=== PATIENT | female | born 1990 | race Caucasian/White ===

== ENCOUNTER 2017-05-20 10:49 | Emergency (ER) | payer BC ==
[2017-05-20 11:20] VITALS: BP 126/96
[2017-05-20] MEDS ORDERED: Acetaminophen/oxyCODONE 325-5 MG Tab PO ONE (12:19)
[2017-05-20] MEDS ORDERED: Cephalexin 500 MG Cap PO ONE (12:22)
--- NOTE | 2017-05-20 12:26 | EDM.PDOC ---
ED HPI GENERAL MEDICAL PROBLEM - General Chief Complaint: ASPHALT ROLLER OPERATOR Problem Stated Complaint: BREAST PAIN/BODY ACHES Time Seen by Provider: 05/20/17 11:53 Source of Information: Reports: Patient History Limitations: Reports: No Limitations - History of Present Illness INITIAL COMMENTS - FREE TEXT/NARRATIVE: Patient is a 26 year old female who presents to the E.D. complaining of tenderness, redness, and generalized body aches. States she has mastitis. She has a history of mastitis in the past with similar symptoms. She continues attempted to breast-feed but once a day particularly in the evening. No drainage from the nipple. Initially thought it was plugged milk duct but due to the development of redness states it's most likely mastitis. Has some generalized body aches no fever, nausea vomiting, shortness of breath, abdominal pain, dysuria, or any additional complaints. She does have some low back discomfort with onset of symptoms. Denies being . 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: , Spontaneous Endocrine/Metabolic History: Reports: Hypothyroidism - Past Surgical History HEENT Surgical History: Reports: BR[place] Female Surgical History: Reports: D&C Musculoskeletal Surgical History: Reports: ORIF Social & Family History - Tobacco Use Smoking Status *Q: Never Smoker Years of Tobacco use: 5 Packs/Tins Daily: 1 Used Tobacco, but Quit: Yes Month Tobacco Last Used: 03/2015 Second Hand Smoke Exposure: No - Caffeine Use Caffeine Use: Reports: None - Alcohol Use Days Per Week of Alcohol Use: 0 - Recreational Drug Use Recreational Drug Use: No ED ROS GENERAL - Review of Systems Review Of Systems: ROS reveals no pertinent complaints other than HPI. ED EXAM, SKIN/RASH Exam: See Below Exam Limited By: No Limitations General Appearance: Alert, WD/WN, No Apparent Distress Ears: Hearing Grossly Normal Nose: Normal Inspection Throat/Mouth: Normal Voice, No Airway Compromise Neck: Normal Inspection, Supple Respiratory/Chest: No Respiratory Distress, Lungs Clear, Normal Breath Sounds, No Accessory Muscle Use Cardiovascular: Normal Peripheral Pulses, Regular Rate, Rhythm Peripheral Pulses: 2+: Radial (R) GI/Abdominal: Normal Bowel Sounds, Soft, Non-Tender, No Organomegaly, No Distention Back Exam: Normal Inspection, Full Range of Motion. No: CVA Tenderness (L), CVA Tenderness (R) Extremities: Normal Inspection, Normal Range of Motion, Non-Tender, No Pedal Edema, Normal Capillary Refill Neurological: Alert, Oriented, Normal Cognition, No Motor/Sensory Deficits Psychiatric: Normal Affect, Normal Mood Skin: Warm, Dry, Intact, Normal Color Location, Skin: Chest (Faint redness noted to the right breast lateral aspect with increased warmth and tenderness noted. No open wounds present. No drainage from the nipple . ) Associated features: Warmth, Tenderness, Inflammation. No: Induration, Scaling , Lymphangitis, Crusting, Weeping, Rough Course - Vital Signs Last Recorded V/S: Last Vital Signs Temp 99.2 F 05/20/17 11:17 Pulse 92 05/20/17 11:17 Resp 18 05/20/17 11:17 BP 126/96 H 05/20/17 11:17 Pulse Ox 98 05/20/17 11:17 - Orders/Labs/Meds Labs: Laboratory Tests 05/20/17 05/20/17 Range/Units 12:45 12:45 Urine Color Yellow (Yellow) Urine Appearance Clear (Clear) Urine pH 6.5 (5.0-8.0) Ur Specific Burkett 1.025 (1.005-1.030) Urine Protein Trace H (Negative) Urine Glucose (UA) Negative (Negative) Urine Ketones Negative (Negative) Urine Occult Blood Negative (Negative) Urine Nitrite Negative (Negative) Urine Bilirubin Negative (Negative) Urine Urobilinogen 0.2 (0.2-1.0) Ur Leukocyte Esterase Negative (Negative) Urine RBC Not seen (0-5) /hpf Urine WBC 0-5 (0-5) /hpf Ur Epithelial Cells 0-5 (0-5) /hpf Urine Bacteria Not seen (FEW) /hpf Urine Mucus Many H (FEW) /hpf Urine HCG, Qual Negative (NEGATIVE) Meds: Medications Discontinued Medications Generic Name Dose Route Start Last Admin Trade Name Ana PRN Reason Stop Dose Admin Cephalexin 500 mg 05/20/17 12:22 05/20/17 12:39 Keflex PO 05/20/17 12:23 500 mg ONETIME ONE Administration Ceftriaxone Sodium 1 gm/ 0 gm 05/20/17 12:30 05/20/17 12:39 Lidocaine HCl 2.1 ml IM 1 inj Q24H [id number] Administration Oxycodone/Acetaminophen 1 tab 05/20/17 12:19 05/20/17 12:39 Percocet 325-5 Mg PO 05/20/17 12:20 1 tab ONETIME ONE Administration - Re-Assessments/Exams Free Text/Narrative Re-Assessment/Exam: Patient has history of mastitis. Current symptoms are similar to previous episodes. On examination patient does have mastitis located to the right breast lateral aspect. No drainage from the nipple present. No open sores present. No history of MRSA. Ordered Rocephin 1 g IM and Keflex 500 mg by mouth. In addition for pain one tablet Percocet by mouth. HCG and UA will be obtained due to low back discomfort and generalized body aches. Patient does not want to have any blood work obtained. 05/20/17 13:26 UA negative for infection. HCG negative. Discharge patient home with instructions for mastitis and prescription for keflex. Departure - Departure Time of Disposition: 13:26 Disposition: Home, Self-Care 01 Condition: Good Clinical Impression: Mastitis in female - Discharge Information Prescriptions: Acetaminophen with Codeine [Tylenol with Codeine #3 Tablet] 1 each PO QID PRN # 16 tablet PRN Reason: Pain (Severe 7-10) Cephalexin [Keflex] 500 mg PO QID #40 capsule Instructions: Mastitis, [id number] Referrals: Tess Farmer DO [Primary Care Provider] - Forms: ED Department Discharge, ED Return to Work/School Form Additional Instructions: Take the full course of antibiotic as prescribed. For pain take ibuprofen and Tylenol in alternating fashion. For severe pain take Tylenol 3. Do not take Tylenol and Tylenol No. 3 together. Massage your breasts during feedings. Use a breast pump to empty your breasts after feedings. Call and make an appointment to see your PCP on Tuesday or Tuesday for reevaluation. Return to the ED for any new or worsening symptoms.
[2017-05-20] MEDS ORDERED: cefTRIAXone 1 GM, Lidocaine 1% 2.1 ML IM SCH ×2 (12:30)
== END 2017-05-20 13:40 | disposition home or self-care (01) ==
LOC: JD.ED 10:49 → SUPCPDRO 10:49 → JD.ED 13:40
DX: N61.0 Mastitis without abscess (principal); Z88.5 Allergy status to narcotic agent
CPT/HCPCS: 81001; 81025; 96372; 99283; A9270; J0696

== ENCOUNTER 2019-07-20 17:06 | Emergency (ER) | payer BC ==
[2019-07-20 17:26] VITALS: BP 135/84; PULSE 88
--- NOTE | 2019-07-20 18:18 | EDM.PDOC ---
ED HPI GENERAL MEDICAL PROBLEM - General Chief Complaint: Cardiovascular Problem Stated Complaint: CHEST PAIN/ELEVATED HEART RATE Time Seen by Provider: 07/20/19 17:39 Source of Information: Reports: Patient, RN Notes Reviewed - History of Present Illness INITIAL COMMENTS - FREE TEXT/NARRATIVE: 28-year-old female comes in with palpitations that have been occurring on and off both the past week or so. She has an apple watch. She has been getting occasional spike readings in the 120 to 1:30 range. These been primarily occurring at rest. That she does have a mild tightness of her upper anterior chest that comes and goes. 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 Off thyroid medication for a while and than was started back on medication about 4 weeks ago Chest Pain Score (Numeric/FACES): 3 - Related Data Allergies Allergy/AdvReac Type Severity Reaction Status Date / Time hydromorphone Allergy Itching Verified 07/20/19 17:26 Home Meds: Home Meds Levothyroxine [Synthroid] 137 mcg PO ACBREAKFAST 05/20/17 [History] Amitriptyline [Elavil] 25 mg PO DAILY 07/20/19 [History] Cyclobenzaprine [Flexeril] 10 mg PO TID PRN 07/20/19 [History] Gabapentin [Neurontin] 300 mg PO BID 07/20/19 [History] Past Medical History - Past Health History Medical/Surgical History: Denies Medical/Surgical History 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: , Spontaneous Neurological History: Reports: Other (See Below) Other Neuro History: fibromyalgia Endocrine/Metabolic History: Reports: Hypothyroidism Other Endocrine/Metabolic History: hasimotos disease - Past Surgical History HEENT Surgical History: Reports: LASIK Female Surgical History: Reports: D&C Musculoskeletal Surgical History: Reports: ORIF Social & Family History - Family History Family Medical History: Noncontributory - Tobacco Use Smoking Status *Q: Never Smoker Second Hand Smoke Exposure: No - Caffeine Use Caffeine Use: Reports: Coffee - Recreational Drug Use Recreational Drug Use: No ED ROS GENERAL - Review of Systems Review Of Systems: See Below Constitutional: Denies: Fever, Chills, Diaphoresis HEENT: Denies: Throat Pain Respiratory: Denies: Shortness of Breath Cardiovascular: Reports: Chest Pain (occasional mild tightness), Palpitations GI/Abdominal: Denies: Abdominal Pain, Nausea, Vomiting Musculoskeletal: Denies: Back Pain Skin: Reports: No Symptoms Neurological: Reports: No Symptoms ED EXAM, GENERAL - Physical Exam Exam: See Below General Appearance: Alert, No Apparent Distress Throat/Mouth: Normal Inspection, Normal Oropharynx Head: Atraumatic. No: Facial Swelling Neck: Supple Respiratory/Chest: No Respiratory Distress, Lungs Clear, Normal Breath Sounds Cardiovascular: Regular Rate, Rhythm GI/Abdominal: Soft, Non-Tender Extremities: Normal Inspection, Normal Range of Motion Neurological: Alert, Oriented, No Motor/Sensory Deficits Psychiatric: Normal Affect, Normal Mood Skin Exam: Dry, Normal Color EKG INTERPRETATION EKG Date: 07/20/19 Rhythm: NSR Mustang: Normal P-Wave: Present QRS: Normal ST-T: Normal QT: Normal Course - Vital Signs Last Recorded V/S: Last Vital Signs Temp 99.0 F 07/20/19 17:18 Pulse 88 07/20/19 17:18 Resp 16 07/20/19 17:18 BP 135/84 07/20/19 17:18 Pulse Ox 99 07/20/19 17:18 - Orders/Labs/Meds Orders: Active Orders 24 hr Category Date Time Status EKG 12 Lead [EKG Documentation Completion] [RC] STAT Care 07/20/19 18:15 Active Holter Monitor 48 Hours [RC] .PRN Care 07/20/19 19:18 Active Labs: Laboratory Tests 07/20/19 07/20/19 Range/Units 17:52 18:25 WBC 3.96 L (3.98-10.04) K/mm3 RBC 4.23 (3.98-5.22) M/mm3 Hgb 13.4 (11.2-15.7) gm/dl Hct 39.3 (34.1-44.9) % MCV 92.9 D (79.4-94.8) fl MCH 31.7 (25.6-32.2) pg MCHC 34.1 (32.2-35.5) g/dl RDW Std Deviation 40.2 (36.4-46.3) fL Plt Count 208 (182-369) K/mm3 MPV 8.9 L (9.4-12.3) fl Neut % (Auto) 40.3 (34.0-71.1) % Lymph % (Auto) 42.9 (19.3-51.7) % Faulk % (Auto) 15.7 H (4.7-12.5) % Eos % (Auto) 0.8 (0.7-5.8) Baso % (Auto) 0.0 L (0.1-1.2) % Neut # (Auto) 1.60 (1.56-6.13) K/mm3 Lymph # (Auto) 1.70 (1.18-3.74) K/mm3 Faulk # (Auto) 0.62 H (0.24-0.36) K/mm3 Eos # (Auto) 0.03 L (0.04-0.36) K/mm3 Baso # (Auto) 0.00 L (0.01-0.08) K/mm3 Manual Slide Review Abnormal smear Sodium 142 (136-145) mEq/L Potassium 3.8 (3.5-5.1) mEq/L Chloride 106 (98-107) mEq/L Carbon Dioxide 26 (21-32) mEq/L Anion Gap 13.8 (5-15) BUN 13 (7-18) mg/dL Creatinine 0.8 (0.55-1.02) mg/dL Est Cr Clr Drug Dosing 102.72 mL/min Estimated GFR (MDRD) > 60 (>60) mL/min BUN/Creatinine Ratio 16.3 (14-18) Glucose 88 (74-106) mg/dL Calcium 8.8 (8.5-10.1) mg/dL Total Bilirubin 0.4 (0.2-1.0) mg/dL AST 13 L (15-37) U/L ALT 27 (14-59) U/L Alkaline Phosphatase 53 (46-116) U/L Total Protein 7.4 (6.4-8.2) g/dl Albumin 3.9 (3.4-5.0) g/dl Globulin 3.5 gm/dL Albumin/Globulin Ratio 1.1 (1-2) TSH 3rd Generation 0.048 L (0.358-3.74) uIU/mL - Re-Assessments/Exams Free Text/Narrative Re-Assessment/Exam: 07/21/19 08:17 TSH did come back low at .048, has been in sinus rythm, rate in the 80's while here in the ED, discharge instr. as documented. Departure - Departure Time of Disposition: 19:22 Disposition: Home, Self-Care 01 Condition: Fair Clinical Impression: Palpitations Instructions: Palpitations, [id number] Referrals: Tasha Carpio MD [Primary Care Provider] - Forms: ED Department Discharge Additional Instructions: Do not take your synthroid tomorrow AM and than take every other morning until you hear from your Project Inspector. Your TSH today was .048. Drink plenty of water to maintain hydration, 48 hour Holter monitor. Follow-up with your regular medical provider in about 7 days for results. Return to ED as needed if symptoms worsening in any way Sepsis Event Note - Evaluation Sepsis Screening Result: No Definite Risk - Focused Exam Date Exam was Performed: 07/21/19 Time Exam was Performed: 08:16 - My Orders Last 24 Hours: My Active Orders 07/20/19 18:15 EKG 12 Lead [EKG Documentation Completion] [RC] STAT 07/20/19 19:18 Holter Monitor 48 Hours [RC] .PRN - Assessment/Plan Last 24 Hours: My Active Orders 07/20/19 18:15 EKG 12 Lead [EKG Documentation Completion] [RC] STAT 07/20/19 19:18 Holter Monitor 48 Hours [RC] .PRN
== END 2019-07-20 20:18 | disposition home or self-care (01) ==
LOC: JD.ED 17:06
DX: R00.2 Palpitations (principal); E03.9 Hypothyroidism, unspecified; Z88.6 Allergy status to analgesic agent; Z79.899 Other long term (current) drug therapy
CPT/HCPCS: 36415; 80053; 84443; 85025; 93005; 93225; 93226; 99285-25

== ENCOUNTER 2020-06-17 19:21 | Emergency (ER) | payer BC ==
[2020-06-17] MEDS ORDERED: diphenhydrAMINE 50 MG Cap PO ONE ×2 (20:12→20:15)
[2020-06-17] MEDS ORDERED: Ketorolac 30 MG/ML SDV IM ONE (20:12)
[2020-06-17] MEDS ORDERED: Acetaminophen 325 MG Tab PO ONE (20:12)
[2020-06-17] MEDS ORDERED: Metoclopramide 5 MG Tab PO ONE (20:12)
[2020-06-17] MEDS ORDERED: Ondansetron 4 MG Tab.DIS PO ONE (20:15)
[2020-06-17] MEDS ORDERED: diphenhydrAMINE 25 MG Cap ONE (20:25)
[2020-06-17] MEDS ORDERED: diphenhydrAMINE 25 MG Cap PO ONE (20:32)
--- NOTE | 2020-06-17 20:33 | EDM.PDOC ---
ED HPI GENERAL MEDICAL PROBLEM - General Chief Complaint: Headache Stated Complaint: POSS STROKE Time Seen by Provider: 06/17/20 19:44 Source of Information: Reports: Patient, RN Notes Reviewed - History of Present Illness INITIAL COMMENTS - FREE TEXT/NARRATIVE: 29 yr old female with onset of Calixto a couple of hrs ago. Started feeling nauseated and than developed perioral tingling around her mouth bilat, and also R hand. Calixto is bilat. Tingling now better. No cough, fever or chills. Headache Pain Score (Numeric/FACES): 10 - Related Data Allergies Allergy/AdvReac Type Severity Reaction Status Date / Time hydromorphone Allergy Itching Verified 06/17/20 19:33 Home Meds: Home Meds Levothyroxine [Synthroid] 125 mcg PO ACBREAKFAST 05/20/17 [History] Cyclobenzaprine [Flexeril] 10 mg PO TID PRN 07/20/19 [History] Gabapentin [Neurontin] 300 mg PO DAILY 07/20/19 [History] Diclofenac Sodium 50 mg PO DAILY PRN 06/17/20 [History] Gabapentin [Neurontin] 600 mg PO BEDTIME 06/17/20 [History] Metoprolol Succinate 25 mg PO DAILY 06/17/20 [History] Sertraline [Zoloft] 100 mg PO DAILY 06/17/20 [History] traZODone HCl [Trazodone HCl] 50 mg PO BEDTIME 06/17/20 [History] Past Medical History - Past Health History Medical/Surgical History: Denies Medical/Surgical History Cardiovascular History: Reports: Hypertension, Other (See Below) Other Cardiovascular History: tachycardic 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: , Spontaneous Musculoskeletal History: Reports: Fibromyalgia Neurological History: Reports: Other (See Below) Other Neuro History: fibromyalgia Psychiatric History: Reports: Anxiety, Depression Endocrine/Metabolic History: Reports: Hypothyroidism Other Endocrine/Metabolic History: hasimotos disease - Infectious Disease History Infectious Disease History: Reports: Chicken Pox - Past Surgical History HEENT Surgical History: Reports: LASIK Female Surgical History: Reports: D&C Musculoskeletal Surgical History: Reports: ORIF Social & Family History - Family History Family Medical History: No Pertinent Family History - Tobacco Use Tobacco Use Status *Q: Current Every Day Tobacco User Years of Tobacco use: 1 Packs/Tins Daily: 1 - Caffeine Use Caffeine Use: Reports: Coffee, Soda - Recreational Drug Use Recreational Drug Use: No ED ROS GENERAL - Review of Systems Review Of Systems: See Below Constitutional: Denies: Fever, Chills HEENT: Denies: Sinus Problem, Throat Pain Respiratory: Denies: Shortness of Breath, Cough Cardiovascular: Denies: Chest Pain GI/Abdominal: Reports: Nausea. Denies: Abdominal Pain, Diarrhea, Vomiting Musculoskeletal: Denies: Neck Pain, Back Pain Skin: Reports: No Symptoms Neurological: Reports: Dizziness, Headache, Numbness. Denies: Trouble Speaking, Difficulty Walking, Weakness - Physical Exam Exam: See Below General Appearance: Alert, No Apparent Distress Eye Exam: Bilateral Eye: PERRL Head Exam: Atraumatic. No: Facial Swelling Neck: Supple Respiratory/Chest: No Respiratory Distress, Lungs Clear, Normal Breath Sounds Cardiovascular: Regular Rate, Rhythm GI/Abdominal: Soft, Non-Tender Neuro Exam (Abbreviated): Alert, Oriented, No Motor/Sensory Deficits, Other (no upper extrem drift, finger to nose nl) Extremities: Normal Inspection, Normal Range of Motion Skin Exam: Warm, Dry, Normal Color, No Rash Course - Vital Signs Last Recorded V/S: Last Vital Signs Temp 98.1 F 06/17/20 19:29 Pulse 66 06/17/20 20:46 Resp 20 06/17/20 20:46 BP 110/73 06/17/20 20:46 Pulse Ox 97 06/17/20 20:46 - Orders/Labs/Meds Meds: Medications Discontinued Medications Generic Name Dose Route Start Last Admin Trade Name Ana PRN Reason Stop Dose Admin Acetaminophen 975 mg 06/17/20 20:12 06/17/20 20:21 Tylenol PO 06/17/20 20:13 Not Given NOW ONE Diphenhydramine HCl 25 mg 06/17/20 20:12 06/17/20 20:34 Benadryl PO 06/17/20 20:13 Not Given ONETIME ONE Diphenhydramine HCl 25 mg 06/17/20 20:15 06/17/20 20:33 Benadryl PO 06/17/20 20:16 Not Given ONETIME ONE Diphenhydramine HCl Confirm 06/17/20 20:25 06/17/20 20:33 Benadryl Administered 06/17/20 20:26 Not Given Dose 25 mg .ROUTE .STK-MED ONE Diphenhydramine HCl 25 mg 06/17/20 20:32 06/17/20 20:34 Benadryl PO 06/17/20 20:33 25 mg ONETIME ONE Administration Ketorolac Tromethamine 30 mg 06/17/20 20:12 06/17/20 20:20 Toradol IM 06/17/20 20:13 30 mg ONETIME ONE Administration Metoclopramide HCl 5 mg 06/17/20 20:12 06/17/20 20:34 Reglan PO 06/17/20 20:13 Not Given ONETIME ONE Ondansetron HCl 4 mg 06/17/20 20:15 06/17/20 20:20 Zofran Odt PO 06/17/20 20:16 4 mg ONETIME ONE Administration Departure - Departure Time of Disposition: 20:32 Disposition: Home, Self-Care 01 Condition: Fair Clinical Impression: Migraine - Discharge Information Instructions: Migraine Headache, [id number] Referrals: Tasha Carpio MD [Primary Care Provider] - Forms: ED Department Discharge Additional Instructions: Rest. Continue current medications. Follow up clinic if not completely back to normal by tomorrow morning. Return to ED as needed if symptoms worsening in any way. Sepsis Event Note (ED) - Evaluation Sepsis Screening Result: No Definite Risk - Focused Exam Vital Signs: Vital Signs Temp Pulse Resp BP Pulse Ox 06/17/20 20:46 66 20 110/73 97 06/17/20 19:29 98.1 F 77 18 133/82 99
[2020-06-17 20:47] VITALS: BP 110/73; PULSE 66
== END 2020-06-17 20:42 | disposition home or self-care (01) ==
LOC: JD.ED 19:21
DX: G43.909 Migraine, unspecified, not intractable, without status migrainosus (principal); F17.210 Nicotine dependence, cigarettes, uncomplicated; I10 Essential (primary) hypertension; F41.9 Anxiety disorder, unspecified; F32.9 Major depressive disorder, single episode, unspecified; E03.9 Hypothyroidism, unspecified; Z79.899 Other long term (current) drug therapy
CPT/HCPCS: 96372; 99283; A9270; J1885

== ENCOUNTER 2022-01-15 20:49 | Emergency (ER) | payer BC, OTHER ==
[2022-01-15 21:07] VITALS: BP 115/70; PULSE 69
== END 2022-01-15 21:49 | disposition home or self-care (01) ==
LOC: JD.ED 20:49
DX: S40.861A Insect bite (nonvenomous) of right upper arm, initial encounter (principal); I10 Essential (primary) hypertension; E03.9 Hypothyroidism, unspecified; Z88.5 Allergy status to narcotic agent; Z79.899 Other long term (current) drug therapy; W57.XXXA Bitten or stung by nonvenomous insect and other nonvenomous arthropods, initial encounter
CPT/HCPCS: 99281; 99282

== ENCOUNTER 2022-07-04 11:45 | Emergency (ER) | payer OTHER ==
[2022-07-04 12:03] VITALS: BP 111/83; PULSE 87
[2022-07-04] MEDS ORDERED: Sodium Chloride 0.9% 10 ML Syringe FLUSH PRN ×2 (12:59→14:47)
[2022-07-04] MEDS ORDERED: Ondansetron 4 MG/2 ML SDV IVPUSH ONE (12:59)
[2022-07-04] MEDS ORDERED: Sodium Chloride 0.9% 1,000 ML IV SCH (13:00)
[2022-07-04] MEDS ORDERED: Sodium Chloride 0.9% 1,000 ML IV ONE (13:26)
[2022-07-04 13:31] LABS: ESTIMATED GFR 88 mL/min (>60)
[2022-07-04] MEDS ORDERED: Iopamidol 612 MG/ML 100 ML Bottle IVPUSH ONE (14:47)
== END 2022-07-04 15:11 | disposition home or self-care (01) ==
LOC: JD.ED 11:45
DX: R10.84 Generalized abdominal pain (principal); I10 Essential (primary) hypertension; E03.9 Hypothyroidism, unspecified; Z88.8 Allergy status to other drugs, medicaments and biological substances; Z88.5 Allergy status to narcotic agent; Z79.899 Other long term (current) drug therapy
CPT/HCPCS: 36415; 80053; 81001; 81025; 83690; 83735; 84702; 85025; 86140; 96360; 99284; J7030